=== PATIENT | female | born 1950 | race Caucasian/White ===

== ENCOUNTER → 2017-04-30 | Outpatient (CLI) | payer OTHER | LOC: FIMAGING 07:58 | DX: Z12.31 Encounter for screening mammogram for malignant neoplasm of breast (principal) | CPT/HCPCS: G0202 ==

== ENCOUNTER → 2018-01-07 | Outpatient (CLI) | payer OTHER | LOC: FIMAGING 09:29 | DX: Z13.820 Encounter for screening for osteoporosis (principal); M81.0 Age-related osteoporosis without current pathological fracture; Z78.0 Asymptomatic menopausal state ==

== ENCOUNTER → 2018-06-19 | Outpatient (CLI) | payer OTHER | LOC: FIMAGING 08:47 | PROVIDERS: ATTEND Family Medicine | DX: Z12.31 Encounter for screening mammogram for malignant neoplasm of breast (principal) ==

== ENCOUNTER 2018-06-29 17:20 | Emergency (ER) | payer OTHER ==
--- NOTE | 2018-06-29 17:38 | EDPHY ---
H & P Stated Complaint: Lightheadeness x several days;worse today w/near syncope Time Seen by Provider: 06/29/18 17:38 HPI/ROS: CHIEF COMPLAINT: Presyncope HISTORY OF PRESENT ILLNESS: The patient presents the ED for evaluation of 2 episodes of presyncope that occurred today. The 1st one occurred at [employer]. The patient reported sitting and then standing up and developed flushing, a pounding heart and presyncope. She sat down her symptoms gradually resolved. She went home and had several glasses of water juice and lunch. She rested and then felt better. She then went to a concert this afternoon and had recurrent symptoms. The patient denies any chest pain or shortness of breath. She denies fever cough or congestion. She denies any dysuria. The patient has had mild vertigo in the past. She denies any symptoms of vertigo today. She denies significant headache. She denies focal numbness or weakness. She denies any complaints of acute pain or recent trauma. REVIEW OF SYSTEMS: A comprehensive 10 point review of systems is otherwise negative aside from elements mentioned in the history of present illness. Source: Patient Exam Limitations: No limitations - Personal History Current Tetanus Diphtheria and Acellular Pertussis (TDAP): Yes Tetanus Vaccine Date: <10 YRS - Medical/Surgical History PMH: Past medical history: Osteoporosis - Family History Significant Family History: No pertinent family hx - Social History Smoking Status: Former smoker - Physical Exam Exam: General Appearance: Alert, no distress Eyes: Pupils equal and round no pallor or injection ENT, Mouth: Mucous membranes moist Respiratory: There are no retractions, lungs are clear to auscultation Cardiovascular: Regular rate and rhythm Gastrointestinal: Abdomen is soft and nontender, no masses, bowel sounds normal Neurological: A&O, normal motor function, normal sensory exam, normal cranial nerves Skin: Warm and dry, no rashes Musculoskeletal: Neck is supple nontender Extremities: symmetrical, full range of motion Constitutional: Initial Vital Signs Temperature (C) 37.3 C 06/29/18 17:25 Heart Rate 78 06/29/18 17:25 Respiratory Rate 18 06/29/18 17:25 Blood Pressure 169/103 H 06/29/18 17:25 O2 Sat (%) 98 06/29/18 17:25 O2 Delivery Mode Room Air Allergies/Adverse Reactions: bacitracin Allergy (Verified 06/29/18 17:28) penicillin V potassium [From Shant[facility]-Jennie K] Allergy (Verified 06/29/18 17:28) Home Medications: Medication Instructions Recorded Hydrochlorothiazide [HCTZ (*)] 25 mg PO DAILY 06/29/18 Medical Decision Making - Diagnostics EKG Interpretation: EKG: Complete interpretation has been separately recorded in the [facility] archive. Summary impression: Sinus rhythm, rate 69, no ischemic changes or arrhythmia noted ED Course/Re-evaluation: The patient presents to the ED after 2 episodes of vasovagal presyncope today. While the patient did have palpitations earlier they have resolved. The patient has had no complaints of chest pain or shortness of breath. Patient's EKG demonstrates no evidence of an obvious arrhythmia. Her cardiac enzymes, basic metabolic panel and CBC are within normal limits. In the emergency department the patient did received 2 L of normal saline over a 2 hr period. She was also placed on a lunchroom monitor without evidence of ectopy. I re-evaluated the patient at 7:30 p.m.. She is up and ambulatory without any recurrent complaints. This point time the absence of other more concerning symptoms I do feel the patient can be discharged home with a likely diagnosis of vasovagal presyncope. She has been instructed to return to the ED for any worsening symptoms, chest pain, tachycardia or other concerns. Patient will follow up with her primary care provider as needed. She has been encouraged to increase her fluid intake as mild relative dehydration may have contributed to her symptoms today. Differential Diagnosis: Differential diagnosis considered includes dehydration, metabolic abnormality, arrhythmia, vasovagal episode, anemia - Data Points Laboratory Results: Laboratory Results 06/29/18 17:45 06/29/18 17:45 06/29/18 06/29/18 17:45 17:45 WBC 7.97 10^3/uL 10^3/uL (3.80-9.50) RBC 4.64 10^6/uL 10^6/uL (4.18-5.33) Hgb 14.4 g/dL g/dL (12.6-16.3) Hct 41.6 % % (38.0-47.0) MCV 89.7 fL fL (81.5-99.8) MCH 31.0 pg pg (27.9-34.1) MCHC 34.6 g/dL g/dL (32.4-36.7) RDW 12.5 % % (11.5-15.2) Plt Count 243 10^3/uL 10^3/uL (150-400) MPV 10.0 fL fL (8.7-11.7) Neut % (Auto) 57.5 % % (39.3-74.2) Lymph % (Auto) 27.9 % % (15.0-45.0) [place] % (Auto) 12.7 % % (4.5-13.0) Eos % (Auto) 1.0 % % (0.6-7.6) Baso % (Auto) 0.6 % % (0.3-1.7) Nucleat RBC Rel Count 0.0 % % (0.0-0.2) Absolute Neuts (auto) 4.59 10^3/uL 10^3/uL (1.70-6.50) Absolute Lymphs (auto) 2.22 10^3/uL 10^3/uL (1.00-3.00) Absolute Monos (auto) 1.01 10^3/uL H 10^3/uL (0.30-0.80) Absolute Eos (auto) 0.08 10^3/uL 10^3/uL (0.03-0.40) Absolute Basos (auto) 0.05 10^3/uL 10^3/uL (0.02-0.10) Absolute Nucleated RBC 0.00 10^3/uL 10^3/uL (0-0.01) Immature Gran % 0.3 % % (0.0-1.1) Immature Gran # 0.02 10^3/uL 10^3/uL (0.00-0.10) Sodium 136 mEq/L mEq/L (135-145) Potassium 3.5 mEq/L mEq/L (3.3-5.0) Chloride 104 mEq/L mEq/L (97-110) Carbon Dioxide 20 mEq/l L mEq/l (22-31) Anion Gap 12 mEq/L mEq/L (6-14) BUN 20 mg/dL mg/dL (7-23) Creatinine 0.7 mg/dL mg/dL (0.6-1.0) Estimated GFR > 60 Glucose 102 mg/dL H mg/dL (70-100) Calcium 10.7 mg/dL H mg/dL (8.5-10.4) Phosphorus 4.1 mg/dL mg/dL (2.5-4.5) Medications Given: Discontinued Medications Sodium Chloride (Ns) 1,000 mls @ 0 mls/hr IV EDNOW ONE; Wide Open PRN Reason: Protocol Stop: 06/29/18 18:19 Last Admin: 06/29/18 18:22 Dose: 1,000 mls Sodium Chloride (Ns) 1,000 mls @ 0 mls/hr IV EDNOW ONE; Wide Open PRN Reason: Protocol Stop: 06/29/18 18:19 Last Admin: 06/29/18 18:56 Dose: 1,000 mls Departure - Departure Disposition: Home, Routine, Self-Care Clinical Impression: Vasovagal near syncope Condition: Good Instructions: Syncope (DC) Additional Instructions: 1. The testing in the emergency department today demonstrates no evidence of a metabolic abnormality, cardiac condition or other worrisome finding. 2. Please try and increase your fluid intake as mild dehydration may have contributed to your symptoms today. 3. Please return to the ED immediately for any recurrent racing heart, symptoms of lightheadedness, chest pain, shortness of breath, numbness, weakness or other concerns. 4. Please schedule a follow-up appointment with your primary care provider as needed Referrals: NUSRAT ROGERS MD [Primary Care Provider] - As per Instructions
[2018-06-29 18:06] LABS: PLATELET COUNT 243 10^3/uL (150-400)
[2018-06-29] MEDS ORDERED: NS 1,000 ML IV ONE ×2 (18:18)
--- NOTE | 2018-06-29 18:36 | CPEKG ---
Test Reason : OPEN Blood Pressure : / mmHG Vent. Rate : 069 BPM Atrial Rate : 068 BPM P-R Int : 159 ms QRS Dur : 080 ms QT Int : 389 ms P-R-T Axes : 052 015 011 degrees QTc Int : 417 ms Sinus rhythm Confirmed by Abiodun Clark ([id number]) on 06/29/2018 6:35:39 PM Referred By: Confirmed By:Abiodun Clark
[2018-06-29 19:45] VITALS: BP 140/95
== END 2018-06-29 19:44 | disposition home or self-care (01) ==
DX: R55 Syncope and collapse (principal); E86.9 Volume depletion, unspecified